=== PATIENT | male | born 1955 | race Caucasian/White ===

== ENCOUNTER 2022-02-17 10:38 | Inpatient (IN) | payer OTHER, MEDICAID ==
[~2022-02-17] VITALS: Ht 193 cm; Wt 195.0 kg
[2022-02-17 10:44] VITALS: BP_SYST 142
[2022-02-17] MEDS ORDERED: VANCOMYCIN HCL 1,000 MG in NS 250 ML IV ONE (11:45)
[2022-02-17] MEDS ORDERED: NACL 0.9% 1,000 ML IV ONE (11:45)
[2022-02-17 12:08] LABS: BASOPHILS # (AUTO) 0.1 K/uL (0.0-0.2); BASOPHILS % (AUTO) 0.8 % (0.0-2.0); EOSINOPHILS # (AUTO) 0.2 K/uL (0.0-0.4); EOSINOPHILS % (AUTO) 2.4 % (0.0-4.0); HEMATOCRIT 38.3 % (36-54); HEMOGLOBIN 12.7 g/dL (14.0-18.0); LYMPHOCYTES # (AUTO) 2.1 K/uL (1.0-5.5); LYMPHOCYTES % (AUTO) 22.4 % (20.5-51.5); MEAN CORPUSCULAR HEMOGLOBIN 28 pg (27-31); MEAN CORPUSCULAR HGB CONC 33 % (32-36); MEAN CORPUSCULAR VOLUME 84 fL (79.0-98.0); MONOCYTES # (AUTO) 0.7 K/uL (0.0-1.0); MONOCYTES % (AUTO) 7.6 % (1.7-9.3); NEUTROPHILS # (AUTO) 6.3 K/uL (1.8-7.7); NEUTROPHILS % (AUTO) 66.8 % (40.0-70.0); PLATELET COUNT (AUTO) 287 K/uL (130-430); RED BLOOD CELL COUNT(AUTO) 4.54 MIL/uL (4.2-6.2); RED CELL DISTRIBUTION WIDTH 14.6 % (9.0-15.0); WHITE BLOOD COUNT (AUTO) 9.5 K/uL (4.8-10.8)
[2022-02-17 12:29] LABS: CALCIUM 9.2 mg/dL (8.4-11.0); CREATININE 0.87 mg/dL (0.55-1.30); POTASSIUM 4.8 mmol/L (3.5-5.1)
[2022-02-17 12:34] LABS: ALBUMIN 3.2 g/dL (3.4-4.8)
[2022-02-17] MEDS ORDERED: VANCOMYCIN HCL 1000 MG/VIAL IV ONE (14:16)
[2022-02-17] MEDS ORDERED: AMLO5TAB4 PO (14:40)
[2022-02-17] MEDS ORDERED: FURO-150 PO (14:40)
[2022-02-17] MEDS ORDERED: METO50TA7 PO (14:40)
[2022-02-17] MEDS ORDERED: LOSA100T3 PO (14:40)
[2022-02-17] MEDS ORDERED: LIP40 PO (14:40)
[2022-02-17] MEDS ORDERED: METF-518 PO (14:40)
[2022-02-17] MEDS ORDERED: MONT-40 PO (14:40)
[2022-02-17] MEDS ORDERED: LORA10TA7 PO (14:40)
[2022-02-17] MEDS ORDERED: LEVO100T9 PO (14:40)
[2022-02-17 21:04] VITALS: BP_SYST 139
== END 2022-02-17 21:50 | disposition left against medical advice (07) | DRG 603 ==
LOC: SED 10:38 → SMU 16:27
PROVIDERS: ADMIT Preventive Medicine Preventive Medicine/Occupational Environmental Medicine; ATTEND Preventive Medicine Preventive Medicine/Occupational Environmental Medicine
DX: L03.115 Cellulitis of right lower limb (principal); Z68.43 Body mass index [BMI] 50.0-59.9, adult; Z20.822 Contact with and (suspected) exposure to COVID-19; E78.5 Hyperlipidemia, unspecified; I10 Essential (primary) hypertension; E66.9 Obesity, unspecified; Z88.8 Allergy status to other drugs, medicaments and biological substances; Z79.899 Other long term (current) drug therapy
CPT/HCPCS: 36415; 80053; 83605; 85025; 87040; 93971; J3370

== ENCOUNTER 2022-02-18 08:20 | Inpatient (IN) | payer OTHER, MEDICAID ==
[~2022-02-18] VITALS: Ht 193 cm; Wt 194.6 kg
[2022-02-18 08:20] VITALS: BP_SYST 163
[~2022-02-18 08:20] MED LIST: AMLO5TAB4 PO; FURO-150 PO; LEVO100T9 PO; LIP40 PO; LORA10TA7 PO; LOSA100T3 PO; METF-518 PO; METO50TA7 PO; MONT-40 PO
--- NOTE | 2022-02-18 08:20 | NUR ---
BROUGHT BACK TO BED #8 AND TRIAGED. REPORT GIVEN TO ERNESTINA
--- NOTE | 2022-02-18 08:30 | NUR ---
Pt coming from home ambulatory with walker. Pt c/o right leg pain and states he was yere yesterday for same issue and was admitted but left ama due to not being fed food he states. Pt is A&Ox4. Right leg swelling and redness noted. Was diagnosed with cellulitis yesterday. VSS. Connected pt to cardiac monitoe. No chest pain and no sob. Denies n/v. Temp 98.6F all other vitals stable. Has hx of HTN, DM, DVT, and Hypothyroidism. Bed in lowest position.
--- NOTE | 2022-02-18 08:40 | NUR ---
ER at bedside examining patient.
[2022-02-18] MEDS ORDERED: VANCOMYCIN HCL 1,000 MG in NS 250 ML IV ONE (08:45)
[2022-02-18] MEDS ORDERED: NACL 0.9% 1,000 ML IV ONE (08:45)
--- NOTE | 2022-02-18 08:45 | NUR ---
# 20 gauge angiocath placed to right AC. Use of asceptic technique. Opsite placed over site. Blood return noted. Flushed with 10 cc of normal saline. No evidence of infiltration noted. Patient tolerated well.
--- NOTE | 2022-02-18 08:50 | NUR ---
Covid swab done and sent to lab.
[2022-02-18] MEDS ORDERED: VANCOMYCIN HCL 1000 MG/VIAL IV ONE (09:04)
--- NOTE | 2022-02-18 09:08 | NUR ---
seal delivery vehicle team technician at bedside.
[2022-02-18 09:28] LABS: BASOPHILS # (AUTO) 0.1 K/uL (0.0-0.2); BASOPHILS % (AUTO) 0.7 % (0.0-2.0); EOSINOPHILS # (AUTO) 0.2 K/uL (0.0-0.4); EOSINOPHILS % (AUTO) 2.1 % (0.0-4.0); HEMOGLOBIN 12.2 g/dL (14.0-18.0); LYMPHOCYTES # (AUTO) 1.7 K/uL (1.0-5.5); MEAN CORPUSCULAR HEMOGLOBIN 28 pg (27-31); MEAN CORPUSCULAR HGB CONC 33 % (32-36); MEAN CORPUSCULAR VOLUME 85 fL (79.0-98.0); MONOCYTES # (AUTO) 0.5 K/uL (0.0-1.0); MONOCYTES % (AUTO) 6.7 % (1.7-9.3); NEUTROPHILS # (AUTO) 5.5 K/uL (1.8-7.7); NEUTROPHILS % (AUTO) 69.5 % (40.0-70.0); PLATELET COUNT (AUTO) 270 K/uL (130-430); RED BLOOD CELL COUNT(AUTO) 4.37 MIL/uL (4.2-6.2); RED CELL DISTRIBUTION WIDTH 14.8 % (9.0-15.0); WHITE BLOOD COUNT (AUTO) 7.9 K/uL (4.8-10.8)
[2022-02-18 09:36] LABS: CALCIUM 8.6 mg/dL (8.4-11.0); CREATININE 0.83 mg/dL (0.55-1.30); POTASSIUM 4.1 mmol/L (3.5-5.1)
--- NOTE | 2022-02-18 10:24 | NUR ---
Covid swab test cancelled due to pt having a covid test result within 24 hours. Results were negative. Pt has no c/o.
--- NOTE | 2022-02-18 10:25 | NUR ---
Medication reconciliation completed with information provided by pt. Any prior medication reconciliation on file was reviewed and corrected.
--- NOTE | 2022-02-18 10:29 | NUR ---
Personal Belonging List completed.
--- NOTE | 2022-02-18 11:02 | NUR ---
Admit bed requested Patient will be admitted to care of . Admitted to MedSurg unit. Diagnosis Cellulitis Inpatient (Yes or No) Yes Observation (Yes or No) No Orientation concerns or request close to nursing station (Yes or No) No Covid Status Negative On vent or bipap No Isolation requirements No Needs a sitter No From Home (Yes or if No enter name of facility) Yes Requires Dialysis (Yes or No) No Med Rec Completed (Yes of No) Yes
--- NOTE | 2022-02-18 13:21 | NUR ---
Patient will be admitted to care of Dr. Vasquez. Admitted to MedSurg unit. Will go to room 108C. Belongings list completed. Complete and up to date summary report printed. SBAR report to be given at bedside with opportunity for questions.
--- NOTE | 2022-02-18 14:16 | NUR ---
CONSULTATION PAGED/CALLED Reason for Consultation: [] CELLULITIS Person Who was Notified: [] VICKI Consulting Physician: [] DR BERRY Director Smb Sales Specialty: [] ID Ordering Physician: [] DR DUMONT
[2022-02-18 16:00] VITALS: BP_SYST 142
[2022-02-18] MEDS ORDERED: ONDANSETRON HCL 4 MG/2 ML VIAL IVP PRN (18:15)
[2022-02-18] MEDS ORDERED: LORazepam 2 MG/ML VIAL IVP PRN (18:15)
[2022-02-18] MEDS ORDERED: ACETAMINOPHEN 325 MG TABLET PO PRN (18:15)
[2022-02-18] MEDS ORDERED: HYDROcodone/ACETAMIN 10-325 MG TAB PO PRN (18:15)
[2022-02-18] MEDS ORDERED: HYDROcodone/ACETAMIN 5-325 MG TAB (NORCO/ VICODIN) PO PRN (18:15)
[2022-02-18] MEDS ORDERED: NALOXONE HCL 0.4 MG/ML AMP (NARCAN) IVP PRN ×2 (18:15)
[2022-02-18] MEDS ORDERED: INSULIN REGULAR, HUMAN 100 UNITS/ML, 10 ML VIAL (humuLIN R) SUBCUT PRN (18:15)
[2022-02-18 20:30] VITALS: BP_SYST 144
[2022-02-18] MEDS: METOPROLOL SUCCINATE 50 MG TAB.SR.24H (TOPROL XL) PO SCH (21:43)
[2022-02-18] MEDS: ATORVASTATIN 20 MG TABLET PO SCH (21:43)
[2022-02-18] MEDS: amLODIPine BESYLATE 5 MG TABLET PO SCH (21:45)
[2022-02-18] MEDS: NORMAL SALINE 5 ML DISP.SYRIN IVF SCH (21:48)
--- NOTE | 2022-02-18 21:59 | NUR ---
PageGelacio Tariq Dr. s/w Joseph
[2022-02-18] MEDS ORDERED: NORMAL SALINE 5 ML DISP.SYRIN IVF SCH (22:00)
--- NOTE | 2022-02-18 22:00 | NUR ---
Marika JONES re insulin Per pt he takes Humalog insulin and not Regular. Paged and spoke with Dr. Fransisco Vasquez.
[2022-02-18] MEDS: INSULIN LISPRO SLIDING SCALE 100 UNITS/ML VIAL (humaLOG) SUBCUT PRN (22:40)
[2022-02-19 01:10] VITALS: BP_SYST 145
--- NOTE | 2022-02-19 06:50 | NUR ---
Closing notes Pt AAOx4, VSS. No s/s distress or discomfort noted. R leg maintained floated on a pillow. BS checked 204, 4 units Humalog administered per protocol. IV saline locked R. FA flushes well with NS. Pt states he slept ok during the night. Call light within reach. To endorse to AM nurse.
[2022-02-19] MEDS: NORMAL SALINE 5 ML DISP.SYRIN IVF SCH ×3 (06:52→21:13)
[2022-02-19] MEDS: INSULIN LISPRO SLIDING SCALE 100 UNITS/ML VIAL (humaLOG) SUBCUT PRN ×4 (06:52→21:37)
[2022-02-19 07:59] LABS: BASOPHILS # (AUTO) 0.1 K/uL (0.0-0.2); BASOPHILS % (AUTO) 1.1 % (0.0-2.0); EOSINOPHILS # (AUTO) 0.2 K/uL (0.0-0.4); EOSINOPHILS % (AUTO) 2.5 % (0.0-4.0); HEMATOCRIT 37.3 % (36-54); HEMOGLOBIN 12.2 g/dL (14.0-18.0); LYMPHOCYTES # (AUTO) 1.5 K/uL (1.0-5.5); LYMPHOCYTES % (AUTO) 20.4 % (20.5-51.5); MEAN CORPUSCULAR HEMOGLOBIN 28 pg (27-31); MEAN CORPUSCULAR HGB CONC 33 % (32-36); MEAN CORPUSCULAR VOLUME 85 fL (79.0-98.0); MONOCYTES # (AUTO) 0.5 K/uL (0.0-1.0); MONOCYTES % (AUTO) 6.8 % (1.7-9.3); NEUTROPHILS # (AUTO) 5.1 K/uL (1.8-7.7); NEUTROPHILS % (AUTO) 69.2 % (40.0-70.0); PLATELET COUNT (AUTO) 255 K/uL (130-430); RED BLOOD CELL COUNT(AUTO) 4.39 MIL/uL (4.2-6.2); RED CELL DISTRIBUTION WIDTH 14.8 % (9.0-15.0); WHITE BLOOD COUNT (AUTO) 7.4 K/uL (4.8-10.8)
[2022-02-19 08:00] VITALS: BP_SYST 140; BP_SYST 141
[2022-02-19] MEDS: LOSARTAN POTASSIUM 50 MG TABLET (COZAAR) PO SCH (08:49)
[2022-02-19] MEDS: LORATADINE 10 MG TABLET PO SCH (08:49)
[2022-02-19] MEDS: LEVOTHYROXINE SODIUM 0.1 MG TABLET PO SCH (08:49)
[2022-02-19] MEDS: FUROSEMIDE 20 MG TABLET PO SCH (08:49)
[2022-02-19] MEDS: METOPROLOL SUCCINATE 50 MG TAB.SR.24H (TOPROL XL) PO SCH ×2 (08:49→21:09)
[2022-02-19 09:10] LABS: CALCIUM 8.7 mg/dL (8.4-11.0); CREATININE 0.78 mg/dL (0.55-1.30); PHOSPHORUS 3.8 mg/dL (2.7-4.5); POTASSIUM 4.3 mmol/L (3.5-5.1)
[2022-02-19] MEDS ORDERED: metFORMIN HCL 500 MG TABLET ONE (09:39)
[2022-02-19] MEDS ORDERED: VANCOMYCIN HCL 2,000 MG in NS 500 ML IV SCH (10:00)
[2022-02-19 12:00] VITALS: BP_SYST 141
[2022-02-19 16:00] VITALS: BP_SYST 138
[2022-02-19] MEDS: MONTELUKAST 10 MG TABLET PO SCH (17:29)
[2022-02-19 20:40] VITALS: BP_SYST 141
[2022-02-19] MEDS: ATORVASTATIN 20 MG TABLET PO SCH (21:07)
[2022-02-19] MEDS: CEFTAROLINE FOSAMIL ACETATE 600 MG in NS 250 ML IV SCH (21:07)
[2022-02-19] MEDS: amLODIPine BESYLATE 5 MG TABLET PO SCH (21:08)
--- NOTE | 2022-02-19 22:15 | NUR ---
MRSA nares collected and sent to lab.
[2022-02-20 00:12] VITALS: BP_SYST 145
[2022-02-20] MEDS: NORMAL SALINE 5 ML DISP.SYRIN IVF SCH ×3 (06:42→22:14)
[2022-02-20] MEDS: INSULIN LISPRO SLIDING SCALE 100 UNITS/ML VIAL (humaLOG) SUBCUT PRN ×3 (06:43→22:32)
[2022-02-20 06:47] LABS: BASOPHILS # (AUTO) 0.1 K/uL (0.0-0.2); EOSINOPHILS # (AUTO) 0.3 K/uL (0.0-0.4); EOSINOPHILS % (AUTO) 2.9 % (0.0-4.0); HEMATOCRIT 36.5 % (36-54); HEMOGLOBIN 12.2 g/dL (14.0-18.0); LYMPHOCYTES # (AUTO) 1.9 K/uL (1.0-5.5); LYMPHOCYTES % (AUTO) 21.5 % (20.5-51.5); MEAN CORPUSCULAR HEMOGLOBIN 28 pg (27-31); MEAN CORPUSCULAR HGB CONC 34 % (32-36); MEAN CORPUSCULAR VOLUME 84 fL (79.0-98.0); MONOCYTES # (AUTO) 0.7 K/uL (0.0-1.0); MONOCYTES % (AUTO) 7.7 % (1.7-9.3); NEUTROPHILS # (AUTO) 5.9 K/uL (1.8-7.7); NEUTROPHILS % (AUTO) 66.9 % (40.0-70.0); PLATELET COUNT (AUTO) 262 K/uL (130-430); RED BLOOD CELL COUNT(AUTO) 4.33 MIL/uL (4.2-6.2); RED CELL DISTRIBUTION WIDTH 14.9 % (9.0-15.0); WHITE BLOOD COUNT (AUTO) 8.9 K/uL (4.8-10.8)
[2022-02-20 08:31] VITALS: BP_SYST 147
[2022-02-20] MEDS: CEFTAROLINE FOSAMIL ACETATE 600 MG in NS 250 ML IV SCH ×2 (09:05→22:08)
[2022-02-20] MEDS: LEVOTHYROXINE SODIUM 0.1 MG TABLET PO SCH (09:05)
[2022-02-20] MEDS: METOPROLOL SUCCINATE 50 MG TAB.SR.24H (TOPROL XL) PO SCH ×2 (09:06→21:12)
[2022-02-20] MEDS: LORATADINE 10 MG TABLET PO SCH (09:06)
[2022-02-20] MEDS: FUROSEMIDE 20 MG TABLET PO SCH (09:07)
[2022-02-20] MEDS: LOSARTAN POTASSIUM 50 MG TABLET (COZAAR) PO SCH (09:07)
[2022-02-20 09:22] LABS: ALANINE AMINOTRANSFERASE 22 U/L (12-78); ANION GAP 8 (5-15); ASPARTATE AMINOTRANSFERASE 23 U/L (10-37); CALCIUM 8.5 mg/dL (8.4-11.0); CHLORIDE 103 mmol/L (98-107); CREATININE 0.83 mg/dL (0.55-1.30); GLUCOSE 142 mg/dL (70-99); POTASSIUM 4.2 mmol/L (3.5-5.1); SODIUM SERUM 141 mmol/L (136-145); TOTAL BILIRUBIN 1.6 mg/dL (0.0-1.0); UREA NITROGEN, BLOOD 12 mg/dL (8-21)
[2022-02-20 09:26] LABS: C-REACTIVE PROTEIN QUANT < 0.2 mg/dL (0-0.5); GFR AFRICAN AMERICAN 119 mL/min (>90)
[2022-02-20] MEDS ORDERED: FUROSEMIDE 20 MG TABLET PO ONE (10:30)
[2022-02-20 12:18] LABS: ERYTHROCYTE SEDIMENTATION RATE 26 MM/HR (0-15)
--- NOTE | 2022-02-20 13:57 | NUR ---
ROUNDS LATE ENTRY DUE TO PATIENT CARE 07;30 AWAKE ALERT . DENIES PAIN AT THIS TIME. POC DISCUSSED WITH PATIENT AND HE VERBALIZED UNDERSTANDING 1145- BS 263 COVERED WITH CHARU 6 UNITS SQ
[2022-02-20 16:18] VITALS: BP_SYST 156
--- NOTE | 2022-02-20 17:41 | NUR ---
Nutrition Assessment Nutritional Screening High Risk Screening Admitting Diagnosis Cellulitis Medical History Comment: Per EMR: 86yM with pmh DM, HTN, HLD,hypothyroisism who presented to ED c/o leg pain with worsening cellulitis of R-lower extremity. Subjective Information RD met with patient at bedside for nutrition assessment. Per pt,appetite is great, confirmed by EMR. 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 Pt denies n/v/d/c and stated his LBM was 02/19. Pt BMI is 52.3, and patient stated that he may have gained ~30 lbs x 1 year d/t worsening leg wound/ cellulitis as he couldn't walk as well or be as active as normal. Pt had no q's or concerns for RD. Current Diet Order/Nutrition Support DM CCHO, lacto-ovo vegetarian x 2 days Patient/Significant Other Able To Verbalize Education Provided Not Indicated Pertinent Medications cozzar, synthoid, lasix, insulin, metformin, metoprolol, lipitor, norvasc Pertinent Labs hgb 12.2 L, glu 142 H, POC glu 187 H, bilirubin 1.6 H Height (Feet) 6 feet Height (Inches) 4.00 inches Weight (Pounds) 429 pounds Weight (Calculated Kilograms) 194.528908 kilograms Patient Weight 194.591 kg Body Mass Index 52.21 kg/m2 %IBW 210 Sheldon/Adjusted Body Weight 202lb/ 92kg Recent Weight Change Yes - Pt endorses 30+ lb weight gain x 1 year Weight Status Morbidly Obese Gastrointestinal Symptoms None Last BM Feb 19, 2022 Food Allergies No Cultural/Ethnic/Christianity Belief Lacto-ovo vegetarian Skin Integrity Comment: Ángel 19; Lower R-leg dry scab Current % PO Good (75-100%) Estimated Energy Expenditure (kcals/day) 8218-3129 (20-25 kcal/kg IBW d/t BMI >50) Estimated Protein Required (g/day) 92-110 (1-1.2 g/kg IBW d/t BMI >50) Estimated Fluid Required (l/day) 1.8-2.3 (1mL/kcal) Problem/Etiology/Signs/Symptoms Morbid obesity r/t suspected undesirable food choices and less active lifestyle d/t leg wound and pain a/e/b BMI 52 kg/m2, 194 kg body weight Expected Outcomes/Goals >80% of nutrient needs, improvement in wound healing, gradual wt loss w/in 1-2 lbs per week, BM q 1-3 days Dietitian Recommendations * Continue DM CCHO, lacto-ovo veg diet a tolerate * Encourage good PO intake * Recommend initiate wound supplements: MVI, vit C 500mg BID, zincate 220mg BID x 14 days Follow Up Mod Risk: F/U in 3-5 days Follow Up By Feb 25, 2022 Alert Indicated Risk of Malnutrition Related to Morbid Obesity BMI> or equal to 40 Risk of Malnutrition Related to Morbid Obesity Yes Malnutrition Recommendations by JUNIOR Dietary Education by JUNIOR Decrease Calorie Intake Addendum: 02/20/22 at [address] Amended: Links added. Addendum: 02/20/22 at [address] Corrected pt age
--- NOTE | 2022-02-20 18:01 | NUR ---
Dietitian Recommendations * Continue DM CCHO, lacto-ovo veg diet a tolerate * Encourage good PO intake * Recommend initiate wound supplements: MVI, vit C 500mg BID, zincate 220mg BID x 14 days Please see nutrition assessment for details. CC, MPH, RDN
[2022-02-20] MEDS: MONTELUKAST 10 MG TABLET PO SCH (18:33)
[2022-02-20 21:00] VITALS: BP_SYST 147
[2022-02-20] MEDS: ATORVASTATIN 20 MG TABLET PO SCH (21:08)
[2022-02-20] MEDS: amLODIPine BESYLATE 5 MG TABLET PO SCH (21:10)
[2022-02-21 03:09] VITALS: BP_SYST 147
[2022-02-21 03:24] VITALS: BP_SYST 147
--- NOTE | 2022-02-21 03:35 | NUR ---
Pt alert and oriented x 4. Pt denied pain and discomfort. Pt FS 210 adm 4 units of insulin. pt denies any resp distress. pt continues on Iv abt for cellulitis. Pt is afebrile. Pt ambulates from bed to bathroom frequently. pt continent of both bowel and bladder.
[2022-02-21] MEDS: INSULIN LISPRO SLIDING SCALE 100 UNITS/ML VIAL (humaLOG) SUBCUT PRN ×3 (07:02→22:23)
[2022-02-21] MEDS: NORMAL SALINE 5 ML DISP.SYRIN IVF SCH ×3 (07:04→22:20)
[2022-02-21 07:32] LABS: BASOPHILS # (AUTO) 0.1 K/uL (0.0-0.2); BASOPHILS % (AUTO) 1.1 % (0.0-2.0); EOSINOPHILS # (AUTO) 0.3 K/uL (0.0-0.4); EOSINOPHILS % (AUTO) 2.8 % (0.0-4.0); HEMATOCRIT 37.7 % (36-54); HEMOGLOBIN 12.5 g/dL (14.0-18.0); LYMPHOCYTES # (AUTO) 1.7 K/uL (1.0-5.5); LYMPHOCYTES % (AUTO) 17.9 % (20.5-51.5); MEAN CORPUSCULAR HEMOGLOBIN 28 pg (27-31); MEAN CORPUSCULAR HGB CONC 33 % (32-36); MEAN CORPUSCULAR VOLUME 84 fL (79.0-98.0); MONOCYTES # (AUTO) 0.7 K/uL (0.0-1.0); NEUTROPHILS # (AUTO) 6.7 K/uL (1.8-7.7); NEUTROPHILS % (AUTO) 71.2 % (40.0-70.0); PLATELET COUNT (AUTO) 259 K/uL (130-430); RED BLOOD CELL COUNT(AUTO) 4.47 MIL/uL (4.2-6.2); RED CELL DISTRIBUTION WIDTH 14.8 % (9.0-15.0); WHITE BLOOD COUNT (AUTO) 9.5 K/uL (4.8-10.8)
[2022-02-21 07:59] LABS: ANION GAP 8 (5-15); CALCIUM 8.9 mg/dL (8.4-11.0); CHLORIDE 101 mmol/L (98-107); CREATININE 0.82 mg/dL (0.55-1.30); GLUCOSE 202 mg/dL (70-99); POTASSIUM 4.2 mmol/L (3.5-5.1); SODIUM SERUM 138 mmol/L (136-145); UREA NITROGEN, BLOOD 13 mg/dL (8-21)
--- NOTE | 2022-02-21 08:00 | NUR ---
OPENING NOTE Patient sitting up at the side of the bed, no sign of distress and denies pain. Patient is alert and oriented x4. Patient updated on his plan of care, verbalized understanding. IV site is clean, dry, intact, and saline locked. All needs met at this time and safety checks made.
[2022-02-21 08:14] LABS: C-REACTIVE PROTEIN QUANT < 0.2 mg/dL (0-0.5); GFR AFRICAN AMERICAN 121 mL/min (>90)
[2022-02-21 08:37] VITALS: BP_SYST 150
[2022-02-21] MEDS ORDERED: FUROSEMIDE 20 MG TABLET PO SCH (09:00)
[2022-02-21] MEDS ORDERED: CEFT600V IV (09:03)
[2022-02-21 09:25] LABS: ERYTHROCYTE SEDIMENTATION RATE 26 MM/HR (0-15)
[2022-02-21] MEDS: LEVOTHYROXINE SODIUM 0.1 MG TABLET PO SCH (09:47)
[2022-02-21] MEDS: FUROSEMIDE 20 MG TABLET PO SCH (09:48)
[2022-02-21] MEDS: LOSARTAN POTASSIUM 50 MG TABLET (COZAAR) PO SCH (09:48)
[2022-02-21] MEDS: LORATADINE 10 MG TABLET PO SCH (09:48)
[2022-02-21] MEDS: METOPROLOL SUCCINATE 50 MG TAB.SR.24H (TOPROL XL) PO SCH ×2 (09:49→22:19)
[2022-02-21] MEDS: CEFTAROLINE FOSAMIL ACETATE 600 MG in NS 250 ML IV SCH ×2 (10:30→22:09)
--- NOTE | 2022-02-21 11:00 | NUR ---
NOTES: called Myra from [employer] and informed her about pt. discharge with home health,nurse Danni made aware.
--- NOTE | 2022-02-21 14:15 | NUR ---
Discharge appointments and vendors arranged by [facility] Covering And Lining Supervisor. Dr. Sahni [facility] will call with date and time patient has standing appt with orthopedic surgeon [facility] [phone] auth#[id number] [facility] for wound care, med rec and IV administration Agency will call and schedule visit. [facility] [phone] auth# [id number] Ceftaroline 600mg Q 12 Hrs . medication will be delivered to patient home. Please call Patient Support Center [phone] for worsening symptoms or trouble getting your medicine. For care needs when provider office is closed, contact Kajal [facility] at [phone] or Marcello [facility] [phone].
--- NOTE | 2022-02-21 14:17 | NUR ---
called the floor spoke with patient nurse Jamie, patient all set up start of care 02/22, needs last dose before discharged
--- NOTE | 2022-02-21 15:06 | NUR ---
Patient reported feeling "flushed." Went to see patient. Placed washcloth over patient's head. Vital signs taken and are stable. No distress noted.
[2022-02-21 15:08] VITALS: BP_SYST 130
--- NOTE | 2022-02-21 15:10 | NUR ---
LUCY Haas made aware of situation. Dr. Vasquez made aware.
[2022-02-21] MEDS: MONTELUKAST 10 MG TABLET PO SCH (18:05)
[2022-02-21 20:05] VITALS: BP_SYST 146
--- NOTE | 2022-02-21 20:11 | NUR ---
CLOSING NOTE Patient resting in bed, no sign of distress and denies pain. Patient has been ambulatory while walker assist, gait is steady, throughout shift. Patient is still waiting for midline placement before discharge home. Patient is aware of his discharge plan and has verbalized understanding. All need met throughout shift and safety checks made. Endorsed to shift supervisor melting nurse.
--- NOTE | 2022-02-21 20:30 | NUR ---
F/U with Midline placement with house sup. Per HS PICC nurse will be here in an hour. Pt to have last dose of Teflaro IV before discharge. Updated pt, pt agreeable.
--- NOTE | 2022-02-21 21:34 | NUR ---
PICC nurse at bedside.
[2022-02-21] MEDS: ATORVASTATIN 20 MG TABLET PO SCH (22:18)
[2022-02-21] MEDS: amLODIPine BESYLATE 5 MG TABLET PO SCH (22:18)
[2022-02-21 22:33] VITALS: BP_SYST 146
--- NOTE | 2022-02-21 23:34 | NUR ---
D/C Patient Patient given medication reconciliation form and D/C instructions. Exit Care provided. Patient verbalized understanding. MD discussed with patient the results and treatment provided. Ambulatory with steady gait for discharge to home using his own sit on walker. Patient in stable condition, ID band removed. IV catheter removed, intact and dressing applied, no active bleeding. ABDIEL midline double lumen placed per PICC line nurse. Home health nurse arranged. Patient educated on pain management. All belongings sent with patient.
== END 2022-02-21 23:30 | disposition home health service (06) | DRG 603 ==
LOC: SED 08:20 → SMU 10:44
PROVIDERS: ADMIT Preventive Medicine Preventive Medicine/Occupational Environmental Medicine; ATTEND Preventive Medicine Preventive Medicine/Occupational Environmental Medicine
DX: L03.115 Cellulitis of right lower limb (principal); E87.1 Hypo-osmolality and hyponatremia; Z68.43 Body mass index [BMI] 50.0-59.9, adult; I10 Essential (primary) hypertension; E03.9 Hypothyroidism, unspecified; E11.65 Type 2 diabetes mellitus with hyperglycemia; E66.01 Morbid (severe) obesity due to excess calories; E78.5 Hyperlipidemia, unspecified; E88.09 Other disorders of plasma-protein metabolism, not elsewhere classified; M71.20 Synovial cyst of popliteal space [Baker], unspecified knee; L03.116 Cellulitis of left lower limb; I89.0 Lymphedema, not elsewhere classified; I87.2 Venous insufficiency (chronic) (peripheral); Z20.822 Contact with and (suspected) exposure to COVID-19; Z88.8 Allergy status to other drugs, medicaments and biological substances; Z88.0 Allergy status to penicillin; Z88.2 Allergy status to sulfonamides
CPT/HCPCS: 36415; 80048; 80053; 82962; 83735; 84100; 85025; 85651-TC; 86140; 87081; 96361; 96365; 99285; J0712; J3370; J7040; J7050

== ENCOUNTER 2023-01-10 15:37 | Emergency (ER) | payer OTHER, MEDICAID ==
[~2023-01-10] VITALS: Ht 193 cm; Wt 181.4 kg
[~2023-01-10 15:37] MED LIST changes: +CEFT600V IV; -LOSA100T3 PO; +LOSA100T4 PO
[2023-01-10 15:40] VITALS: BP_SYST 127
--- NOTE | 2023-01-10 15:40 | NUR ---
BROUGHT BACK TO BED #5 VIA WHEELCHAIR, TRIAGED AND REPORT GIVEN TO EAMON
--- NOTE | 2023-01-10 16:00 | NUR ---
DOCTOR AT BEDSIDE EXAMINING PATIENT
[2023-01-10] MEDS ORDERED: KETOROLAC TROMETHAMINE 60 MG/2 ML VIAL IM ONE (16:15)
--- NOTE | 2023-01-10 16:25 | NUR ---
UA COLLECTED AND TAKEN TO LAB
[2023-01-10 16:42] LABS: BILIRUBIN,URINE 1+ (NEGATIVE); BLOOD, URINE NEGATIVE (NEGATIVE); COLOR,URINE ORANGE (YELLOW); GLUCOSE,URINE NEGATIVE (NEGATIVE); KETONES,URINE NEGATIVE (NEGATIVE); LEUKOCYTE ESTERASE ,URINE NEGATIVE (NEGATIVE); NITRITE, URINE POSITIVE (NEGATIVE); PROTEIN URINE 1+ (NEGATIVE)
[2023-01-10 16:44] LABS: CLARITY/URINE SLIGHTLY HAZY (CLEAR)
[2023-01-10 16:57] LABS: BACTERIA,URINE MODERATE /HPF (None Seen); HYALINE CASTS, URINE 0-10 /LPF (None Seen); RBC,URINE 0-3 /HPF (0-3); WBC,URINE 0-3 /HPF (0-3)
[2023-01-10] MEDS ORDERED: CIPR500T5 PO (17:38)
[2023-01-10] MEDS ORDERED: IBUP-1971 PO (17:38)
[2023-01-10] MEDS ORDERED: HYDR-3927 PO (17:38)
[2023-01-10 18:00] VITALS: BP_SYST 115
--- NOTE | 2023-01-10 18:00 | NUR ---
Patient given written and verbal discharge instructions and verbalizes understanding. ER MD discussed with patient the results and treatment provided. Patient in stable condition. ID arm band removed. IV catheter removed intact and dressing applied, no active bleeding. Rx of given. Patient educated on pain management and to follow up with PMD. Pain Scale 4/10. Opportunity for questions provided and answered. Medication side effect fact sheet provided. Patient stated that he does not have adequate home support and is unclear on what resources are avaialble to him. Nurse left voice message for case management department requesting f/u for possible resources for Patient. Patient made aware this would be done on his behalf. He stated he would be staying with his friend for a few days.
--- NOTE | 2023-01-12 16:36 | NUR ---
Telephone call from [facility] [place] requesting I reach out to a patient that was here in the ER on Sunday to inquire about resources that may be available to the patient to assist with his care at home. Upon looking at his insurance, I reached out to the [facility] Hanane GOSS CM to inform her of the patient's needs. I also reached out to the patient who requested I call him at a later date, as he is not back in the hospital at [facility] in [place]. I advised the patient that I will call him next week. [facility] Hanane GOSS CM: [phone]
== END 2023-01-10 18:00 | disposition home or self-care (01) ==
LOC: SED 15:37
DX: N39.0 Urinary tract infection, site not specified (principal); R10.9 Unspecified abdominal pain; M54.50 Low back pain, unspecified; E11.9 Type 2 diabetes mellitus without complications; I10 Essential (primary) hypertension; Z88.5 Allergy status to narcotic agent; Z88.8 Allergy status to other drugs, medicaments and biological substances; Z79.899 Other long term (current) drug therapy
CPT/HCPCS: 99283; 81000; 87086; 96372; J1885